=== PATIENT | female | born 1930 | race Caucasian/White ===

== ENCOUNTER 2017-08-17 15:29 | Emergency (ER) | payer MEDICARE, OTHER ==
[2017-08-17] MEDS ORDERED: ONDANSETRON HCL INJ/PF 4 MG/2 ML SDV IV ONE (15:46)
[2017-08-17] MEDS ORDERED: NORMAL SALINE 500 ML IV ONE ×2 (16:08→16:39)
[2017-08-17 16:13] LABS: ABSOLUTE LYMPHOCYTES (AUTO) 0.9 10^3/uL (0.5-4.7); ABSOLUTE NEUT (AUTO) 14.3 10^3/uL (1.7-8.2); BASOPHILS % (AUTO) 0.2 % (0-2); HEMATOCRIT 31.4 % (36.0-47.0); HEMOGLOBIN 10.5 g/dL (12.0-15.5); HGB HCT DIFFERENCE 0.1; LYMPHOCYTES % (AUTO) 5.6 % (13-45); MEAN CORPUSCULAR HEMOGLOBIN 30.6 pg (27.0-33.4); MEAN CORPUSCULAR HGB CONC 33.4 g/dL (32.0-36.0); MEAN CORPUSCULAR VOLUME 91 fl (80-97); MONOCYTES % (AUTO) 6.1 % (3-13); RED BLOOD COUNT 3.43 10^6/uL (3.72-5.28); RED CELL DISTRIBUTION WIDTH 13.6 % (11.5-14.0); SEGMENTED NEUTROPHILS % (AUTO) 88.1 % (42-78); WHITE BLOOD COUNT 16.2 10^3/uL (4.0-10.5)
[2017-08-17 16:26] LABS: ALANINE AMINOTRANSFERASE 22 U/L (9-52); ALKALINE PHOSPHATASE 49 U/L (38-126); ANION GAP 19 (5-19); ASPARTATE AMINO TRANSFERASE 21 U/L (14-36); BILIRUBIN,DIRECT 0.5 mg/dL (0.0-0.4); BILIRUBIN,TOTAL 0.6 mg/dL (0.2-1.3); BLOOD UREA NITROGEN 26 mg/dL (7-20); CALCIUM 9.9 mg/dL (8.4-10.2); CARBON DIOXIDE 18 mmol/L (22-30); CHLORIDE 107 mmol/L (98-107); CREATININE RESULT 1.06 mg/dL (0.52-1.25); GLUCOSE 153 mg/dL (75-110); LIPASE 75.9 U/L (23-300); POTASSIUM 4.2 mmol/L (3.6-5.0); TOTAL PROTEIN 6.3 g/dL (6.3-8.2)
--- NOTE | 2017-08-17 17:27 | RADIOLOGY REPORT (SQ) ---
EXAM DESCRIPTION: ACUTE ABDOMEN SERIES COMPLETED DATE/TIME: 08/17/2017 5:06 pm REASON FOR STUDY: n/v constipation COMPARISON: None. NUMBER OF VIEWS: Three views. TECHNIQUE: Frontal chest, supine abdomen and upright abdomen radiographic images acquired. LIMITATIONS: None. FINDINGS: CHEST: Lungs clear of infiltrates. FREE AIR: None. No abnormal gas collections. BOWEL GAS PATTERN: Nonobstructive pattern. No dilated loops or air fluid levels. There appears to be considerable stool in the rectum. CALCIFICATIONS: No suspicious calcifications. HARDWARE: None in the abdomen. SOFT TISSUES: Possible urinary bladder distension. BONES: No acute fracture. No worrisome bone lesions. OTHER: No other significant finding. IMPRESSION: Possible impaction. Possible dilated bladder. TECHNICAL DOCUMENTATION: JOB ID: [id number] [employer]- All Rights Reserved
[2017-08-17] MEDS ORDERED: LIDOCAINE 2% URO-JET 5 ML KIT MM ONE (17:47)
[2017-08-17 17:50] LABS: AMORPHOUS SEDIMENT,URINE TRACE /HPF; APPEARANCE,URINE CLOUDY; BILIRUBIN,URINE NEGATIVE (NEGATIVE); GLUCOSE, URINE NEGATIVE (NEGATIVE); KETONES,URINE TRACE mg/dL (NEGATIVE); LEUKOCYTE ESTERASE,URINE NEGATIVE (NEGATIVE); NITRITE,URINE NEGATIVE (NEGATIVE); PROTEIN,URINE NEGATIVE (NEGATIVE); UROBILINOGEN,URINE NEGATIVE mg/dL (<2.0)
[2017-08-17] MEDS ORDERED: ONDANSETRON ODT 4 MG TAB (6 TAB/DSPK) PO PRN (18:58)
--- NOTE | 2017-08-17 18:59 | ER Document Report ---
ED General - General Chief Complaint: Constipation Stated Complaint: CONSTIPATED, NAUSEA Time Seen by Provider: 08/17/17 15:43 - HPI Patient complains to provider of: Nausea vomiting constipation Notes: Patient brought in today for feeling unwell states feeling unwell for approximately 4 hours. Daughter at bedside states patient has not had a bowel movement approximate 40 hours. Was given a laxative approximate 24 hours ago and now is having some vomiting apparently 2 with his nausea. Daughter states patient has not taken anything p.o. except for a small amount of a Ensure drink. States that she is refused to eat or drink anything today. Upon my evaluation patient otherwise was to be frail however is alert. Patient denies any complaints at this time except for nausea. Daughter denies any fever chills patient denies any abdominal pain denies any chest pain Past Medical History - Social History Smoking Status: Never Smoker Chew tobacco use (# tins/day): No Frequency of alcohol use: None Drug Abuse: None Family History: Reviewed & Not Pertinent Patient has suicidal ideation: No Patient has homicidal ideation: No - Past Medical History Cardiac Medical History: Reports: Hx Congestive Heart Failure, Hx Hypertension Renal/ Medical History: Denies: Hx Peritoneal Dialysis Review of Systems - Review of Systems Constitutional: No symptoms reported EENT: No symptoms reported Cardiovascular: No symptoms reported Respiratory: No symptoms reported Gastrointestinal: No symptoms reported, Nausea Genitourinary: No symptoms reported Female Genitourinary: No symptoms reported Musculoskeletal: No symptoms reported Skin: No symptoms reported Hematologic/Lymphatic: No symptoms reported Neurological/Psychological: No symptoms reported -: Yes All other systems reviewed and negative Physical Exam - Vital signs Vitals: Resp BP Pulse Ox 15 158/138 H 99 08/17/17 15:43 08/17/17 15:43 08/17/17 15:43 Interpretation: Normal - General General appearance: Appears well, Alert - HEENT Head: Normocephalic, Atraumatic Eyes: Normal Pupils: PERRL - Respiratory Respiratory status: No respiratory distress Chest status: Nontender Breath sounds: Normal Chest palpation: Normal - Cardiovascular Rhythm: Regular Heart sounds: Normal auscultation Murmur: No - Abdominal Inspection: Normal Distension: No distension Bowel sounds: Normal Tenderness: Nontender Organomegaly: No organomegaly - Rectal Hemorrhoids: External Notes: Hard stool found in the rectal vault - Back Back: Normal, Nontender - Extremities General upper extremity: Normal inspection, Nontender, Normal color, Normal ROM , Normal temperature General lower extremity: Normal inspection, Nontender, Normal color, Normal ROM , Normal temperature, Normal weight bearing. No: Moni's sign - Neurological Neuro grossly intact: Yes Cognition: Normal Orientation: AAOx4 [place] Coma Scale Eye Opening: Spontaneous [place] Coma Scale Verbal: Oriented [place] Coma Scale Motor: Obeys Commands [place] Coma Scale Total: 15 Speech: Normal Motor strength normal: LUE, RUE, LLE, RLE Sensory: Normal - Psychological Associated symptoms: Normal affect, Normal mood - Skin Skin Temperature: Warm Skin Moisture: Dry Skin Color: Normal Course - Re-evaluation Re-evalutation: 08/17/17 19:21 Patient laboratory values showed slight elevation in white count and decreased bicarb this is more likely thought to be due to vomiting and dehydration. Patient was given IV fluids here patient was given antiemetics after which patient requesting water than applesauce which patient was able to tolerate. Patient's x-ray does show a stool impaction which was digitally removed. At this procedure performed patient stating feeling much better and request to be discharged home. Patient able tolerate p.o. at this time afebrile no new critical findings on examination patient will be discharged and encouraged follow-up with her PCP encouraged daughter to give stool softeners instead of laxatives - Vital Signs Vital signs: Temp Pulse Resp BP Pulse Ox 10 L 158/138 H 99 08/17/17 15:44 08/17/17 15:43 08/17/17 15:44 - Laboratory Result Diagrams: 08/17/17 15:52 08/17/17 15:52 Laboratory results interpreted by me: 08/17/17 08/17/17 08/17/17 15:52 15:52 17:24 WBC 16.2 H RBC 3.43 L Hgb 10.5 L Hct 31.4 L Seg Neutrophils % 88.1 H Lymphocytes % 5.6 L Absolute Neutrophils 14.3 H Carbon Dioxide 18 L BUN 26 H Est GFR ( Amer) 59 L Est GFR (Non-Af Amer) 49 L Glucose 153 H Direct Bilirubin 0.5 H Urine Ketones TRACE H Urine Ascorbic Acid 20 H Procedures - Additional Procedures Rectal disimpaction Notes: 08/17/17 19:23 Patient was placed in the left lateral, position installation of a Urojet was performed in the rectum using my finger sweeping motion was performed to remove hard stool until stool was softer consistency of Play-Daiana. Patient tolerated procedure well multiple hemorrhoids no bleeding occurred. Discharge - Discharge Clinical Impression: Impacted stool in rectum, Nausea, Dehydration Constipation Qualifiers: Constipation type: unspecified constipation type Qualified Code(s): K59.00 - Constipation, unspecified Condition: Good Disposition: HOME, SELF-CARE Instructions: Constipation ([facility]), Stool Softener ([facility]) Additional Instructions: X-ray showed fecal impaction was was removed digitally. Please encourage her mother to continue to drink plenty of fluids to stay well hydrated. More likely the nausea was caused by the use of laxatives. Recommend following up with your primary care physician next 3-4 days return to the ER symptoms worsen Prescriptions: Ondansetron [Zofran Odt 4 mg Tablet] 1 - 2 tab PO Q4H PRN #15 tab.rapdis PRN Reason: For Nausea/Vomiting Referrals: POPPY TAVARES MD [Primary Care Provider] - Follow up as needed
[2017-08-17 20:15] VITALS: BP 129/65
== END 2017-08-17 19:45 | disposition home or self-care (01) ==
LOC: ER 15:29
DX: K56.41 Fecal impaction (principal); R11.0 Nausea; E86.0 Dehydration; K59.00 Constipation, unspecified
CPT/HCPCS: 99284; 96361; 51701; 96374; 36415; 87045; 87205; 83690; 85025; 80053; 81001; 87493; 74022; J2405; J7040; A9270 ×2; J3490

== ENCOUNTER 2017-09-07 14:12 | Emergency (ER) | payer MEDICARE, OTHER ==
[2017-09-07 14:25] VITALS: BP 112/69
--- NOTE | 2017-09-07 14:52 | ER Document Report ---
ED Medical Screen (RME) - General Chief Complaint: Low Blood Pressure Stated Complaint: BLOOD PRESSURE ISSUES Time Seen by Provider: 09/07/17 14:42 Notes: This 87-year-old female patient comes emergency room for low blood pressure. She has been weak with no appetite for quite some time. She has had significant weight loss in the last month or so. Her daughter stopped her Prozac 2 weeks ago because of symptoms, it is probably made the symptoms worse. The patient had been on metoprolol 75 mg twice daily. The patient has dentures but they do not fit well now. She reports bone coming up through the gums. For this reason she initially stopped wanting to eat due to the pain and not having dentures that she could chew her food with. By history none of these issues have been addressed by her primary care provider. I have greeted and performed a rapid initial assessment of this patient. A comprehensive ED assessment and evaluation of the patient, analysis of test results and completion of the medical decision making process will be conducted by additional ED providers. TRAVEL OUTSIDE OF THE [place] IN LAST 30 DAYS: No - Related Data Allergies/Adverse Reactions: No Known Allergies Allergy (Verified 09/07/17 14:16) Past Medical History - Social History Chew tobacco use (# tins/day): No Frequency of alcohol use: None Drug Abuse: None - Past Medical History Cardiac Medical History: Reports: Hx Congestive Heart Failure, Hx Hypertension Renal/ Medical History: Denies: Hx Peritoneal Dialysis Physical Exam - Vital signs Vitals: Temp Pulse Resp BP Pulse Ox 97.8 F 108 H 16 112/69 99 09/07/17 14:24 09/07/17 14:24 09/07/17 14:24 09/07/17 14:24 09/07/17 14:24 Course - Vital Signs Vital signs: Temp Pulse Resp BP Pulse Ox 97.8 F 108 H 16 112/69 99 09/07/17 14:24 09/07/17 14:24 09/07/17 14:24 09/07/17 14:24 09/07/17 14:24
[2017-09-07 15:22] LABS: ABSOLUTE BASOPHILS # (AUTO) 0.1 10^3/uL (0.0-0.2); ABSOLUTE EOSINOPHILS # (AUTO) 0.1 10^3/uL (0.0-0.6); ABSOLUTE LYMPHOCYTES (AUTO) 1.7 10^3/uL (0.5-4.7); ABSOLUTE MONOCYTES (AUTO) 0.6 10^3/uL (0.1-1.4); ABSOLUTE NEUT (AUTO) 4.4 10^3/uL (1.7-8.2); BASOPHILS % (AUTO) 1.1 % (0-2); HEMATOCRIT 33.1 % (36.0-47.0); HGB HCT DIFFERENCE -0.1; LYMPHOCYTES % (AUTO) 24.5 % (13-45); MEAN CORPUSCULAR HEMOGLOBIN 30.7 pg (27.0-33.4); MEAN CORPUSCULAR HGB CONC 33.3 g/dL (32.0-36.0); MEAN CORPUSCULAR VOLUME 92 fl (80-97); MONOCYTES % (AUTO) 8.2 % (3-13); RED BLOOD COUNT 3.59 10^6/uL (3.72-5.28); RED CELL DISTRIBUTION WIDTH 13.6 % (11.5-14.0); SEGMENTED NEUTROPHILS % (AUTO) 65.2 % (42-78); WHITE BLOOD COUNT 6.8 10^3/uL (4.0-10.5)
[2017-09-07 15:39] LABS: ALANINE AMINOTRANSFERASE 22 U/L (9-52); ALKALINE PHOSPHATASE 51 U/L (38-126); ANION GAP 11 (5-19); ASPARTATE AMINO TRANSFERASE 23 U/L (14-36); BILIRUBIN,DIRECT 0.3 mg/dL (0.0-0.4); BILIRUBIN,TOTAL 0.3 mg/dL (0.2-1.3); BLOOD UREA NITROGEN 23 mg/dL (7-20); CALCIUM 9.8 mg/dL (8.4-10.2); CARBON DIOXIDE 27 mmol/L (22-30); CHLORIDE 103 mmol/L (98-107); CREATININE RESULT 1.24 mg/dL (0.52-1.25); GLUCOSE 143 mg/dL (75-110); POTASSIUM 4.4 mmol/L (3.6-5.0); SODIUM 140.7 mmol/L (137-145); TOTAL PROTEIN 6.8 g/dL (6.3-8.2)
== END 2017-09-07 16:57 | disposition left against medical advice (07) ==
LOC: ER 14:12
DX: I95.9 Hypotension, unspecified (principal); R63.4 Abnormal weight loss; R63.0 Anorexia; I10 Essential (primary) hypertension; Z79.899 Other long term (current) drug therapy; Z53.20 Procedure and treatment not carried out because of patient's decision for unspecified reasons
CPT/HCPCS: 36415; 80053; 85025; 99281

== ENCOUNTER 2018-01-09 05:40 | Emergency (ER) | payer MEDICARE, OTHER ==
--- NOTE | 2018-01-09 05:53 | ER Document Report ---
ED Medical Screen (RME) - General Stated Complaint: FEVER,NAUSEA Time Seen by Provider: 01/09/18 05:51 Mode of Arrival: Medic Information source: Relative Notes: Daughter states that patient presents with nausea and diarrhea since yesterday. Daughter states that patient has felt very weak and has not had any appetite. Daughter states that patient has had numerous episodes of diarrhea. Patient complains of soreness to abdomen. hx: Hypertension, hyperlipidemia, GERD, frequent UTIs I have greeted and performed a rapid initial assessment of this patient. A comprehensive ED assessment and evaluation of the patient, analysis of test results and completion of the medical decision making process will be conducted by additional ED providers. TRAVEL OUTSIDE OF THE [place] IN LAST 30 DAYS: No - Related Data Allergies/Adverse Reactions: No Known Allergies Allergy (Verified 09/07/17 14:16) Past Medical History - Past Medical History Cardiac Medical History: Reports: Hx Congestive Heart Failure, Hx Hypertension Renal/ Medical History: Denies: Hx Peritoneal Dialysis Physical Exam - General General appearance: Alert - Abdominal Bowel sounds: Hyperactive Tenderness: Tender - Generalized soreness
[2018-01-09 06:10] LABS: ABSOLUTE LYMPHOCYTES (AUTO) 1.2 10^3/uL (0.5-4.7); ABSOLUTE MONOCYTES (AUTO) 1.5 10^3/uL (0.1-1.4); ABSOLUTE NEUT (AUTO) 13.9 10^3/uL (1.7-8.2); HEMATOCRIT 30.9 % (36.0-47.0); HEMOGLOBIN 10.4 g/dL (12.0-15.5); LYMPHOCYTES % (AUTO) 7.5 % (13-45); MEAN CORPUSCULAR HEMOGLOBIN 30.4 pg (27.0-33.4); MEAN CORPUSCULAR HGB CONC 33.5 g/dL (32.0-36.0); MEAN CORPUSCULAR VOLUME 91 fl (80-97); PLATELET COUNT 300 10^3/uL (150-450); RED BLOOD COUNT 3.41 10^6/uL (3.72-5.28); SEGMENTED NEUTROPHILS % (AUTO) 83.5 % (42-78); TOTAL CELLS COUNTED % (AUTO) 100 %; WHITE BLOOD COUNT 16.7 10^3/uL (4.0-10.5)
--- NOTE | 2018-01-09 06:28 | RADIOLOGY REPORT (SQ) ---
EXAM DESCRIPTION: CHEST SINGLE VIEW CLINICAL HISTORY: 87 years Female, fever COMPARISON: None. NUMBER OF VIEWS/TECHNIQUE: 1/AP FINDINGS: Adequate lung volume, clear parenchyma, normal cardiac silhouette, atherosclerosis, left nuchal skinfold artifact, and intact bony thorax. IMPRESSION: No acute cardiopulmonary findings.
[2018-01-09 06:40] LABS: ALANINE AMINOTRANSFERASE 20 U/L (9-52); ALKALINE PHOSPHATASE 33 U/L (38-126); ANION GAP 11 (5-19); ASPARTATE AMINO TRANSFERASE 19 U/L (14-36); BILIRUBIN,DIRECT 0.2 mg/dL (0.0-0.4); BILIRUBIN,TOTAL 0.3 mg/dL (0.2-1.3); BLOOD UREA NITROGEN 40 mg/dL (7-20); CALCIUM 8.5 mg/dL (8.4-10.2); CARBON DIOXIDE 18 mmol/L (22-30); CHLORIDE 115 mmol/L (98-107); GLUCOSE 179 mg/dL (75-110); POTASSIUM 4.2 mmol/L (3.6-5.0); SODIUM 144.4 mmol/L (137-145); TOTAL PROTEIN 5.3 g/dL (6.3-8.2)
[2018-01-09] MEDS ORDERED: NORMAL SALINE 500 ML IV ONE (06:42)
[2018-01-09 07:11] LABS: APPEARANCE,URINE CLOUDY; BILIRUBIN,URINE NEGATIVE (NEGATIVE); GLUCOSE, URINE NEGATIVE (NEGATIVE); KETONES,URINE NEGATIVE (NEGATIVE); LEUKOCYTE ESTERASE,URINE NEGATIVE (NEGATIVE); NITRITE,URINE NEGATIVE (NEGATIVE); PROTEIN,URINE 30 mg/dL (NEGATIVE)
[2018-01-09 07:12] LABS: COLOR,URINE YELLOW
--- NOTE | 2018-01-09 08:03 | ER Document Report ---
ED General - General Chief Complaint: Nausea Stated Complaint: FEVER,NAUSEA Time Seen by Provider: 01/09/18 05:51 Mode of Arrival: Medic TRAVEL OUTSIDE OF THE [place] IN LAST 30 DAYS: No - HPI Patient complains to provider of: Nausea vomiting abdominal pain Notes: Patient coming in for home for approximately 24-48 hours of nausea and diarrhea. Family at bedside states no vomiting. Patient has been complaining of some diffuse abdominal pain. No chills patient is currently on Macrobid for urinary tract infection. Denies any other antibiotics. Patient otherwise resting comfortably upon my evaluation. No recent travel no changes to any medications except for Macrobid - Related Data Allergies/Adverse Reactions: No Known Allergies Allergy (Verified 09/07/17 14:16) Past Medical History - General Information source: Relative - Social History Smoking Status: Unknown if Ever Smoked Family History: Reviewed & Not Pertinent Patient has suicidal ideation: No Patient has homicidal ideation: No - Past Medical History Cardiac Medical History: Reports: Hx Congestive Heart Failure, Hx Hypertension Renal/ Medical History: Denies: Hx Peritoneal Dialysis Review of Systems - Review of Systems Constitutional: No symptoms reported EENT: No symptoms reported Cardiovascular: No symptoms reported Respiratory: No symptoms reported Gastrointestinal: Diarrhea, Nausea Genitourinary: No symptoms reported Female Genitourinary: No symptoms reported Musculoskeletal: No symptoms reported Skin: No symptoms reported Hematologic/Lymphatic: No symptoms reported Neurological/Psychological: No symptoms reported -: Yes All other systems reviewed and negative Physical Exam - Vital signs Vitals: Temp Resp Pulse Ox 99.8 F 15 96 01/09/18 05:49 01/09/18 05:49 01/09/18 05:49 Interpretation: Normal - General General appearance: Appears well, Alert - HEENT Head: Normocephalic, Atraumatic Eyes: Normal Pupils: PERRL - Respiratory Respiratory status: No respiratory distress Chest status: Nontender Breath sounds: Normal Chest palpation: Normal - Cardiovascular Rhythm: Regular Heart sounds: Normal auscultation Murmur: No - Abdominal Inspection: Normal Distension: No distension Bowel sounds: Normal Tenderness: Tender - Mild to moderate left lower quadrant tenderness Organomegaly: No organomegaly - Back Back: Normal, Nontender - Extremities General upper extremity: Normal inspection, Nontender, Normal color, Normal ROM , Normal temperature General lower extremity: Normal inspection, Nontender, Normal color, Normal ROM , Normal temperature, Normal weight bearing. No: Moni's sign - Neurological Neuro grossly intact: Yes Cognition: Normal Orientation: AAOx4 [place] Coma Scale Eye Opening: Spontaneous [place] Coma Scale Verbal: Oriented [place] Coma Scale Motor: Obeys Commands [place] Coma Scale Total: 15 Speech: Normal Motor strength normal: LUE, RUE, LLE, RLE Sensory: Normal - Psychological Associated symptoms: Normal affect, Normal mood - Skin Skin Temperature: Warm Skin Moisture: Dry Skin Color: Normal Course - Re-evaluation Re-evalutation: 01/09/18 08:31 Slight leukocytosis and decreased bicarb patient has a history of the site to be diarrhea with constipation last few visits with bicarb looking similar. Because of left lower quadrant abdominal pain will get a CAT scan to evaluate for diverticulitis diverticulosis or other abdominal pathology 01/09/18 14:40 CT scan shows colitis. Also questionable rectocutaneous fistula. Reevaluation of the patient's rectum does not reveal any signs of fistula formation. Fluid around the bladder is consistent with infection however I do feel that patient primary however patient recently finished a prescription for urinary tract infection. Patient otherwise feeling better after IV fluids. Patient daughter at bedside to take care of the patient requesting to take the patient home does not want admission at this time. Patient was able to tolerate her p.o. Cipro and p.o. Flagyl monitor quite some time and remembers reeducated keep the patient hydrated to continue antibiotics return for any concerning issues. States understanding will be discharged home - Vital Signs Vital signs: Temp Pulse Resp BP Pulse Ox 98.7 F 13 159/69 H 97 01/09/18 11:54 01/09/18 11:58 01/09/18 11:54 01/09/18 11:58 - Laboratory Result Diagrams: 01/09/18 05:57 01/09/18 05:57 Laboratory results interpreted by me: 01/09/18 01/09/18 01/09/18 05:57 05:57 06:39 WBC 16.7 H RBC 3.41 L Hgb 10.4 L Hct 30.9 L Seg Neutrophils % 83.5 H Lymphocytes % 7.5 L Absolute Neutrophils 13.9 H Absolute Monocytes 1.5 H Chloride 115 H Carbon Dioxide 18 L BUN 40 H Est GFR ( Amer) 56 L Est GFR (Non-Af Amer) 46 L Glucose 179 H Alkaline Phosphatase 33 L Total Protein 5.3 L Albumin 3.0 L Urine Protein 30 H Urine Urobilinogen 4.0 H Discharge - Discharge Clinical Impression: Colitis Diarrhea Qualifiers: Diarrhea type: unspecified type Qualified Code(s): R19.7 - Diarrhea, unspecified Condition: Good Disposition: HOME, SELF-CARE Instructions: Ciprofloxacin ([facility]), Colitis, Nonspecific ([facility]), Metronidazole ( [facility]) Additional Instructions: Follow-up with your primary care physician. Return to ER symptoms worsen. Take medications as prescribed. Laboratory results today show a small leukocytosis along with a CAT scan finding of colitis or inflammation and infection of the colon. More likely this is the reason for the patient's having diarrhea. We will start patient on Cipro and Flagyl. Please make sure the patient stays well hydrated and drinks plenty fluids. Recommend increasing fiber or adding her to diet to aid in diarrhea. Return to the ER for any concerning issues. Follow-up with your primary care provider. I will also have your information given to our social work they will also contact you to see if any further assistance or aid in discussing with your PCP about finding aid for home. Prescriptions: Ciprofloxacin HCl [Cipro 500 mg Tablet] 500 mg PO BID #20 tablet Metoclopramide HCl [Reglan] 5 mg PO Q6 #30 tablet Metronidazole [Flagyl 500 mg Tablet] 500 mg PO TID #30 tablet Referrals: ALIYAH WHITEHEAD MD [Primary Care Provider] - Follow up in 3-5 days
--- NOTE | 2018-01-09 09:02 | RADIOLOGY REPORT (SQ) ---
EXAM DESCRIPTION: CT ABD/PELVIS WITH IV ONLY COMPLETED DATE/TIME: 01/09/2018 8:22 am REASON FOR STUDY: LLQ pain n/d COMPARISON: None. TECHNIQUE: CT scan of the abdomen and pelvis performed using helical scanning technique with dynamic intravenous contrast injection. No oral contrast. Images reviewed with lung, soft tissue, and bone windows. Reconstructed coronal and sagittal MPR images reviewed. Delayed images for evaluation of the urinary system also acquired. All images stored on PACS. All CT scanners at this facility use dose modulation, iterative reconstruction, and/or weight based d osing when appropriate to reduce radiation dose to as low as reasonably achievable (ALARA). [facility]: Dose Right [facility]: CareDose [facility]: Dose Right [facility]: Teradose 4D [facility]: [employer] CONTRAST TYPE AND DOSE: contrast/concentration: Isovue 370.00 mg/ml; Total Contrast Delivered: 49.0 ml; Total Saline Delivered: 65.0 ml RENAL FUNCTION: Creatinine measures 1.12 RADIATION DOSE: CT Rad equipment meets quality standard of care and radiation dose reduction techniq ues were employed. CTDIvol: 4.8 mGy. DLP: 484 mGy-cm.. LIMITATIONS: None. FINDINGS: LOWER CHEST: No significant findings. No nodules or infiltrates. LIVER: Normal size. No masses. No dilated ducts. SPLEEN: Normal size. No focal lesions. PANCREAS: No masses. No significant calcifications. No adjacent inflammation or peripancreatic fluid collections. Pancreatic duct not dilated. GALLBLADDER: No identified stones by CT criteria. No inflammatory changes to suggest cholecystitis. ADRENAL GLANDS: No significant masses or asymmetry. RIGHT KIDNEY AND URETER: No solid masses. No significant calcifications. No hydronephrosis or hyd roureter. LEFT KIDNEY AND URETER: No solid masses. No significant calcifications. No hydronephrosis or hydr oureter. AORTA AND VESSELS: No aneurysm. No dissection. Renal arteries, SMA, celiac without stenosis. RETROPERITONEUM: No retroperitoneal adenopathy, hemorrhage or masses. BOWEL AND PERITONEAL CAVITY: There is a large amount of desiccated stool distending the rectal vault. There is diffuse mucosal thickening and surrounding inflammation involving the descending and sigmo id colon compatible with colitis. APPENDIX: Normal. PELVIS: No discrete mass identified. There is diffuse mucosal thickening involving the bladder with surrounding inflammation with fluid extending into the perirectal and presacral space. ABDOMINAL WALL: No masses. No hernias. BONES: Degenerative change without fracture or suspicious osseous lesion. OTHER: There appears to be a communication between the anal canal in the skin surface seen on series 3 images [id number] suggestive of an anal cutaneous fistula. IMPRESSION: CT FINDINGS SUGGESTIVE OF COLITIS INVOLVING THE DESCENDING AND SIGMOID COLON WHICH COULD BE INFECTIOUS OR INFLAMMATORY. RECOMMEND FOLLOWUP COLONOSCOPY TO ENSURE NO UNDERLYING LESION. INFLAMMATORY CHANGE INVOLVING THE BLADDER WITH FLUID EXTENDING DOWN INTO THE PERIRECTAL AND PRESACRAL SPACE SUGGESTIVE OF CYSTITIS. CORRELATE WITH URINALYSIS. 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 CORRELATE WITH PHYSICAL EXAM FINDINGS. TECHNICAL DOCUMENTATION: JOB ID: [id number] Quality ID # [id number]: Final reports with documentation of one or more dose reduction techniques (e.g., Au tomated exposure control, adjustment of the mA and/or kV according to patient size, use of iterative reconstruction technique) 2010 [employer]- All Rights Reserved Reading location - IP/workstation name: [email or web address]
[2018-01-09] MEDS ORDERED: CIPROFLOXACIN HCL 500 MG TABLET PO ONE (09:30)
[2018-01-09] MEDS ORDERED: ONDANSETRON HCL INJ/PF 4 MG/2 ML SDV IV ONE (09:30)
[2018-01-09] MEDS ORDERED: METRONIDAZOLE 500 MG TABLET PO ONE (09:30)
[2018-01-09 12:22] VITALS: BP 159/69
== END 2018-01-09 12:00 | disposition home or self-care (01) ==
LOC: ER 05:40
DX: K52.9 Noninfective gastroenteritis and colitis, unspecified (principal); R50.9 Fever, unspecified; R11.0 Nausea; R10.32 Left lower quadrant pain; D72.829 Elevated white blood cell count, unspecified; I10 Essential (primary) hypertension
CPT/HCPCS: 99285; 96374; 36415; 87040; 87045; 87205; 83690; 85025; 80053; 81001; 87493; 71045; 74177; A9270 ×2; J2405; J7040

== ENCOUNTER 2018-01-10 10:13 | Inpatient (IN) | payer MEDICARE, OTHER ==
[2018-01-10] MEDS ORDERED: NORMAL SALINE 500 ML IV ONE (10:21)
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
[2018-01-10 10:44] LABS: ABSOLUTE LYMPHOCYTES (AUTO) 1.2 10^3/uL (0.5-4.7); ABSOLUTE MONOCYTES (AUTO) 1.7 10^3/uL (0.1-1.4); ABSOLUTE NEUT (AUTO) 13.1 10^3/uL (1.7-8.2); BASOPHILS % (AUTO) 0.1 % (0-2); HEMATOCRIT 29.7 % (36.0-47.0); HEMOGLOBIN 9.9 g/dL (12.0-15.5); LYMPHOCYTES % (AUTO) 7.3 % (13-45); MEAN CORPUSCULAR HEMOGLOBIN 29.8 pg (27.0-33.4); MEAN CORPUSCULAR HGB CONC 33.3 g/dL (32.0-36.0); MEAN CORPUSCULAR VOLUME 90 fl (80-97); MONOCYTES % (AUTO) 10.8 % (3-13); PLATELET COUNT 291 10^3/uL (150-450); RED BLOOD COUNT 3.31 10^6/uL (3.72-5.28); RED CELL DISTRIBUTION WIDTH 14.1 % (11.5-14.0); SEGMENTED NEUTROPHILS % (AUTO) 81.8 % (42-78); TOTAL CELLS COUNTED % (AUTO) 100 %
[2018-01-10 11:07] LABS: ALANINE AMINOTRANSFERASE 24 U/L (9-52); ALBUMIN 3.4 g/dL (3.5-5.0); ALKALINE PHOSPHATASE 34 U/L (38-126); ANION GAP 12 (5-19); ASPARTATE AMINO TRANSFERASE 23 U/L (14-36); BILIRUBIN,DIRECT 0.3 mg/dL (0.0-0.4); BILIRUBIN,TOTAL 0.4 mg/dL (0.2-1.3); BLOOD UREA NITROGEN 35 mg/dL (7-20); CALCIUM 9.3 mg/dL (8.4-10.2); CARBON DIOXIDE 20 mmol/L (22-30); CHLORIDE 109 mmol/L (98-107); GLUCOSE 151 mg/dL (75-110); POTASSIUM 4.4 mmol/L (3.6-5.0); SODIUM 141.4 mmol/L (137-145)
[2018-01-10 11:43] LABS: AMORPHOUS SEDIMENT,URINE TRACE /HPF; APPEARANCE,URINE SLIGHTLY-CLOUDY; BILIRUBIN,URINE NEGATIVE (NEGATIVE); COLOR,URINE YELLOW; GLUCOSE, URINE NEGATIVE (NEGATIVE); KETONES,URINE NEGATIVE (NEGATIVE); LEUKOCYTE ESTERASE,URINE TRACE (NEGATIVE); NITRITE,URINE NEGATIVE (NEGATIVE); PROTEIN,URINE 30 mg/dL (NEGATIVE); URINE SPECIFIC GRAVITY 1.016; UROBILINOGEN,URINE NEGATIVE mg/dL (<2.0)
--- NOTE | 2018-01-10 11:53 | RADIOLOGY REPORT (SQ) ---
EXAM DESCRIPTION: CT HEAD WITHOUT COMPLETED DATE/TIME: 01/10/2018 11:42 am REASON FOR STUDY: AMS, unable to walk COMPARISON: None. TECHNIQUE: Axial images acquired through the brain without intravenous contrast. Images reviewed wi th bone, brain and subdural windows. Additional sagittal and coronal reconstructions were generated. Images stored on PACS. All CT scanners at this facility use dose modulation, iterative reconstruction, and/or weight based d osing when appropriate to reduce radiation dose to as low as reasonably achievable (ALARA). [facility]: Dose Right [facility]: CareDose [facility]: Dose Right [facility]: Teradose 4D [facility]: [employer] RADIATION DOSE: CT Rad equipment meets quality standard of care and radiation dose reduction techniq ues were employed. CTDIvol: 53.2 mGy. DLP: 1097 mGy-cm. mGy. LIMITATIONS: None. FINDINGS: VENTRICLES: Normal size and contour. CEREBRUM: No masses. No hemorrhage. No midline shift. No evidence for acute infarction. There is b ifrontal low attenuation in the deep periventricular white matter from chronic small vessel ischemic change. 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 CEREBELLUM: No masses. No hemorrhage. No alteration of density. No evidence for acute infarction. EXTRAAXIAL SPACES: No fluid collections. No masses. ORBITS AND GLOBE: No intra- or extraconal masses. Normal contour of globe without masses. CALVARIUM: No fracture. PARANASAL SINUSES: No fluid or mucosal thickening. SOFT TISSUES: No mass or hematoma. OTHER: No other significant finding. IMPRESSION: No acute findings. 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 COMMENT: Quality ID # [id number]: Final reports with documentation of one or more dose reduction techniques (e.g., Automated exposure control, adjustment of the mA and/or kV according to patient size, use of iterative reconstruction technique) TECHNICAL DOCUMENTATION: JOB ID: [id number] [employer]- All Rights Reserved Reading location - IP/workstation name: ON LICENSE OF [email or web address]
[2018-01-10] MEDS ORDERED: ONDANSETRON HCL INJ/PF 4 MG/2 ML SDV IV PRN (14:24)
--- NOTE | 2018-01-10 14:48 | PDOC H&P ---
History of Present Illness Admission Date/PCP: 01/10/2018 2.30pm ALIYAH WHITEHEAD MD Patient complains of: Abdominal pain anorexia. Unable to ambulate History of Present Illness: MADAI HONG is a 87 year old female With a known past history of CHF ; usually cared for at home by her daughter She was brought to the ED with a history of anorexia ;abdominal pain extreme weakness with inability to stand and ambulate for the past 4 days. Patient has been bedbound, somewhat lethargic. She was evaluated yesterday in the ED and diagnosed of acute colitis and UTI She was discharged home on Cipro and Flagyl. Somehow her condition worsened and she was brought back for reevaluation and admission Upon evaluation in the ED she was found somewhat dehydrated; examination of the abdomen revealed a diffusely tender abdomen With mild guarding and mild rebound in all quadrants Review of the CT showed pancolitis, cystitis and suspicion of an enterocutaneous fistula. Patient was admitted to IMCU with telemetry; IV Cipro and Flagyl were initiated ; IV fluids; she was kept n.p.o. And surgical consult with Dr. Vogt was requested. Noted that patient wishes to be full code Past Medical History Cardiac Medical History: Reports: Congestive Heart Failure, Hypertension Past Surgical History Past Surgical History: No significant past surgical issues Social History Information Source: Patient Lives with: Family Smoking Status: Never Smoker Frequency of Alcohol Use: None Hx Recreational Drug Use: No - Advance Directive Resuscitation Status: Full Code Surrogate healthcare decision maker:: Daughter Hayley Family History Parental Family History Reviewed: Yes Children Family History Reviewed: Yes Sibling(s) Family History Reviewed.: Yes - 1 brother in good health Sister is well but has decreased visual acuity Medication/Allergy Home Medications: Aspirin [Adult Aspirin] 81 mg PO DAILY 01/09/18 Ciprofloxacin HCl [Cipro 500 mg Tablet] 500 mg PO BID #20 tablet 01/09/18 Fluoxetine HCl [Prozac] 1 cap PO DAILY 01/09/18 Lisinopril [Lisinopril] 1 tab PO DAILY 01/09/18 Metoclopramide HCl [Reglan] 5 mg PO Q6 #30 tablet 01/09/18 Metoprolol Tartrate [Lopressor 50 mg Tablet] 0.5 tab PO BID 01/09/18 Metronidazole [Flagyl 500 mg Tablet] 500 mg PO TID #30 tablet 01/09/18 Nitrofurantoin Macrocrystal [Macrodantin] 100 mg PO DAILY 01/09/18 Oxybutynin Chloride 5 mg PO BID 01/09/18 Pravastatin Sodium 40 mg PO DAILY 01/09/18 Allergies/Adverse Reactions: No Known Allergies Allergy (Verified 09/07/17 14:16) Review of Systems Constitutional: PRESENT: anorexia, fatigue, weakness Eyes: PRESENT: visual disturbances Cardiovascular: ABSENT: chest pain, dyspnea on exertion, edema, palpitations Respiratory: ABSENT: cough, dyspnea, hemoptysis Gastrointestinal: PRESENT: as per HPI, abdominal pain, diarrhea Genitourinary: ABSENT: difficulty urinating, hematuria Musculoskeletal: ABSENT: joint swelling Neurological: PRESENT: frequent falls - Yes, weakness, other - Left hand has been contracted for the last 4 days. ABSENT: abnormal speech, confusion Psychiatric: ABSENT: anxiety, depression Physical Exam Vital Signs: Temp Pulse Resp BP Pulse Ox 98.8 F 63 14 159/66 H 97 01/10/18 10:18 01/10/18 10:18 01/10/18 13:01 01/10/18 13:01 01/10/18 13:01 Intake & Output 01/09/18 01/10/18 01/11/18 00:59 00:59 00:59 Weight 41.6 kg General appearance: PRESENT: mild distress, thin, other - Looks frail Head exam: PRESENT: atraumatic, normocephalic Eye exam: PRESENT: conjunctiva pink, EOMI, PERRLA. ABSENT: scleral icterus Respiratory exam: PRESENT: clear to auscultation catarino. ABSENT: rales, rhonchi, wheezes Cardiovascular exam: PRESENT: RRR. ABSENT: diastolic murmur, rubs, systolic murmur GI/Abdominal exam: PRESENT: guarding, normal bowel sounds, rebound - No quadrants, tenderness Rectal exam: PRESENT: deferred Extremities exam: PRESENT: full ROM. ABSENT: calf tenderness, clubbing, pedal edema Neurological exam: PRESENT: awake, CN II-XII grossly intact, other - Left hand is contracted Psychiatric exam: PRESENT: appropriate affect Skin exam: PRESENT: dry, intact, warm. ABSENT: cyanosis, rash Results Laboratory Results: 01/10/18 10:30 01/10/18 10:30 01/10/18 01/10/18 01/10/18 10:30 10:30 11:08 WBC 16.0 H RBC 3.31 L Hgb 9.9 L Hct 29.7 L MCV 90 MCH 29.8 MCHC 33.3 RDW 14.1 H Plt Count 291 Seg Neutrophils % 81.8 H Lymphocytes % 7.3 L Monocytes % 10.8 Eosinophils % 0.0 Basophils % 0.1 Absolute Neutrophils 13.1 H Absolute Lymphocytes 1.2 Absolute Monocytes 1.7 H Absolute Eosinophils 0.0 Absolute Basophils 0.0 Sodium 141.4 Potassium 4.4 Chloride 109 H Carbon Dioxide 20 L Anion Gap 12 BUN 35 H Creatinine 1.21 Est GFR ( Amer) 51 L Est GFR (Non-Af Amer) 42 L Glucose 151 H Calcium 9.3 Total Bilirubin 0.4 AST 23 ALT 24 Alkaline Phosphatase 34 L Total Protein 6.0 L Albumin 3.4 L Urine Color YELLOW Urine Appearance SLIGHTLY-CLOUDY Urine pH 5.0 Ur Specific Lena 1.016 Urine Protein 30 H Urine Glucose (UA) NEGATIVE Urine Ketones NEGATIVE Urine Blood NEGATIVE Urine Nitrite NEGATIVE Ur Leukocyte Esterase TRACE H Urine WBC (Auto) 2 Urine RBC (Auto) 4 Impressions: Head CT 01/10/18 10:49 IMPRESSION: No acute findings. 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 Assessment & Plan - Diagnosis (1) Abdominal pain Qualifiers: Abdominal location: generalized Qualified Code(s): R10.84 - Generalized abdominal pain Is this a current diagnosis for this admission?: Yes (2) Ambulatory dysfunction Is this a current diagnosis for this admission?: Yes (4) Dehydration Is this a current diagnosis for this admission?: Yes (5) UTI (urinary tract infection) Qualifiers: Urinary tract infection type: acute cystitis - Time Time Spent with patient: Patient has an extremely tender abdomen and evidence of acute colitis on the CAT scan We will keep her n.p.o. IV fluids Cipro Flagyl Morphine as needed Surgical consult She is somewhat dehydrated with a BUN of 40 but remains hemodynamically stable We will hydrate her with saline Hansen catheter will be inserted We will admit the patient as an inpatient to IMCU Her prognosis is guarded Time Spent: 50 to 70 Minutes - Inpatient Certification Based on my medical assessment, after consideration of the patient's comorbidities, presenting symptoms, or acuity I expect that the services needed warrant INPATIENT care.: Yes I certify that my determination is in accordance with my understanding of Medicare's requirements for reasonable and necessary INPATIENT services [42 CFR 412.3e].: Yes Medical Necessity: Need For IV Fluids, Need for IV Antibiotics
[2018-01-10] MEDS: CIPROFLOXACIN 400 MG/D5W RTU 400 MG/200 ML RTUPB IV SCH (16:46)
--- NOTE | 2018-01-10 17:07 | PDOC CONSULTATION ---
Consultation Consult Date: 01/10/18 Attending physician:: RITA PADILLA Consult reason:: Acute abdomen History of Present Illness Admission Date/PCP: 01/10/18 14:36 ALIYAH WHITEHEAD MD History of Present Illness: MADAI HONG is a 87 year old female Is brought to the emergency department for the second and arrived complaining of abdominal pain, weakness, and fatigue. Please see admission history and physical document for complete records. According the patient she feels tired, and and can control her bowels. There is no family member to corroborate her history. She is very soft-spoken. Ranges are made for admission to the floor. In the emergency department she received IV fluids and had blood drawn. Patient was seen in emergency department 24 hours ago diagnosed with colitis and sent home with Flagyl and ciprofloxacin. Because of failure to improve she returned today. CT scan of the abdomen and pelvis showed findings consistent with constipation. A description of colonic wall thickening consistent with colitis, and possible enterocutaneous fistula were also mentioned. Past Medical History Cardiac Medical History: Reports: Congestive Heart Failure, Hypertension Past Surgical History Past Surgical History: Midline scar consistent with previous surgery, details unknown Social History Lives with: Family Smoking Status: Never Smoker Frequency of Alcohol Use: None Hx Recreational Drug Use: No Hx Prescription Drug Abuse: No - Advance Directive Resuscitation Status: Full Code Family History Family History: Reviewed & Not Pertinent Parental Family History Reviewed: Yes Children Family History Reviewed: Yes Sibling(s) Family History Reviewed.: Yes Medication/Allergy Home Medications: Aspirin [Adult Aspirin] 81 mg PO DAILY 01/09/18 Ciprofloxacin HCl [Cipro 500 mg Tablet] 500 mg PO BID #20 tablet 01/09/18 Fluoxetine HCl [Prozac] 1 cap PO DAILY 01/09/18 Lisinopril [Lisinopril] 1 tab PO DAILY 01/09/18 Metoclopramide HCl [Reglan] 5 mg PO Q6 #30 tablet 01/09/18 Metoprolol Tartrate [Lopressor 50 mg Tablet] 0.5 tab PO BID 01/09/18 Metronidazole [Flagyl 500 mg Tablet] 500 mg PO TID #30 tablet 01/09/18 Nitrofurantoin Macrocrystal [Macrodantin] 100 mg PO DAILY 01/09/18 Oxybutynin Chloride 5 mg PO BID 01/09/18 Pravastatin Sodium 40 mg PO DAILY 01/09/18 Allergies/Adverse Reactions: No Known Allergies Allergy (Verified 09/07/17 14:16) Review of Systems ROS unobtainable: Due to mental status, Other - Patient really cannot answer all the questions for thorough review of systems Physical Exam Vital Signs: Temp Pulse Resp BP Pulse Ox 98.1 F 63 14 167/92 H 96 01/10/18 16:32 01/10/18 10:18 01/10/18 16:01 01/10/18 16:01 01/10/18 16:01 General appearance: PRESENT: no acute distress Head exam: PRESENT: normocephalic Eye exam: PRESENT: EOMI Mouth exam: PRESENT: dry mucosa Neck exam: PRESENT: full ROM Respiratory exam: PRESENT: decreased breath sounds Cardiovascular exam: PRESENT: RRR GI/Abdominal exam: PRESENT: other - Soft, flat, no organomegaly no peritoneal signs really no significant tenderness; Scars consistent with previous midline surgery Rectal exam: PRESENT: other - Copious amounts of brown stool coming out with rectal exam. Sphincter tone is loose; no palpable masses Psychiatric exam: PRESENT: flat affect Results Impressions: Head CT 01/10/18 10:49 IMPRESSION: No acute findings. 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 Assessment & Plan - Diagnosis (1) Abdominal pain Qualifiers: Abdominal location: generalized Qualified Code(s): R10.84 - Generalized abdominal pain Is this a current diagnosis for this admission?: Yes Plan: Unclear etiology; tentative diagnosis of colitis entertained based on CT scan of the abdomen and pelvis. Surgeon's comment: CT scan was performed without oral contrast. I personally reviewed the CT scan with Dr. Pisano, radiologist. No definitive evidence of enterocutaneous fistula. There is no significant fluid collection, free air, phlegmon, and only a rectal anal canal full of stool. Chronic atherosclerotic changes and osteoarthritic changes consistent with patient's age. Recommendations: 1. No indication for acute surgical intervention her graft 2. Agree with medical support including IV fluids and empiric antibiotic therapy. 3. Suggest addressing CODE STATUS 4. Surgery will be available on an as-needed basis. - Time Time Spent: 30 to 50 Minutes Smoking Cessation Education: 3 to 10 minutes Anticipated discharge: Home
[2018-01-10] MEDS ORDERED: POLYETHYLENE GLYCOL 3350 POWDER 17 GM/1 PACKET PO ONE (18:00)
[2018-01-10] MEDS: BISACODYL 5 MG TABEC PO SCH (19:01)
[2018-01-10] MEDS: METRONIDAZOLE 500 MG/NS RTU 100 ML IV SCH (19:58)
--- NOTE | 2018-01-10 21:16 | EKG REPORT ---
SEVERITY:- ABNORMAL ECG - SINUS RHYTHM RIGHT BUNDLE BRANCH BLOCK LVH WITH IVCD AND SECONDARY REPOL ABNRM : Confirmed by: Kait Stoll 10-Jan-2018 21:16:25
[2018-01-10] MEDS: PANTOPRAZOLE SODIUM 40 MG VIAL IV SCH (21:23)
[2018-01-10] MEDS: NA PHOS,M-B/NA PHOS,DI-BA (ADULT) 133 ML ENEMA PR SCH (21:23)
[2018-01-11] MEDS: METRONIDAZOLE 500 MG/NS RTU 100 ML IV SCH ×5 (00:19→23:30)
[2018-01-11] MEDS: CIPROFLOXACIN 400 MG/D5W RTU 400 MG/200 ML RTUPB IV SCH ×2 (04:52→15:32)
[2018-01-11 06:51] LABS: HEMATOCRIT 29.1 % (36.0-47.0); HEMOGLOBIN 9.7 g/dL (12.0-15.5); MEAN CORPUSCULAR HGB CONC 33.5 g/dL (32.0-36.0); MEAN CORPUSCULAR VOLUME 90 fl (80-97); PLATELET COUNT 282 10^3/uL (150-450); RED BLOOD COUNT 3.25 10^6/uL (3.72-5.28); WHITE BLOOD COUNT 15.7 10^3/uL (4.0-10.5)
[2018-01-11 07:10] LABS: ALANINE AMINOTRANSFERASE 24 U/L (9-52); ALBUMIN 2.9 g/dL (3.5-5.0); ALKALINE PHOSPHATASE 40 U/L (38-126); ANION GAP 11 (5-19); ASPARTATE AMINO TRANSFERASE 16 U/L (14-36); BILIRUBIN,DIRECT 0.1 mg/dL (0.0-0.4); BILIRUBIN,TOTAL 0.2 mg/dL (0.2-1.3); BLOOD UREA NITROGEN 24 mg/dL (7-20); CALCIUM 8.8 mg/dL (8.4-10.2); CARBON DIOXIDE 21 mmol/L (22-30); CHLORIDE 111 mmol/L (98-107); GLUCOSE 158 mg/dL (75-110); POTASSIUM 3.5 mmol/L (3.6-5.0); SODIUM 142.8 mmol/L (137-145); TOTAL PROTEIN 5.3 g/dL (6.3-8.2)
[2018-01-11 08:18] LABS: FREE T4 (FREE THYROXINE) 1.13 ng/dL (0.78-2.19)
[2018-01-11 08:32] LABS: THYROID STIMULATING HORMONE 1.88 uIU/mL (0.47-4.68)
[2018-01-11] MEDS: NORMAL SALINE 1000 ML 1,000 ML IV PRN (09:18)
[2018-01-11] MEDS: PANTOPRAZOLE SODIUM 40 MG VIAL IV SCH ×2 (09:18→21:11)
[2018-01-11] MEDS: BISACODYL 5 MG TABEC PO SCH ×2 (09:19→17:33)
[2018-01-11] MEDS: POLYETHYLENE GLYCOL 3350 POWDER 17 GM/1 PACKET PO SCH (09:19)
[2018-01-11] MEDS ORDERED: LISINOPRIL 10 MG TABLET PO ONE (11:00)
[2018-01-11] MEDS ORDERED: METOPROLOL TARTRATE 25 MG TABLET PO ONE (11:00)
--- NOTE | 2018-01-11 14:18 | PDOC PROGRESS REPORT ---
Subjective Progress Note for:: 01/11/18 Subjective:: Patient is feeling a lot better Decreased abdominal pain No nausea vomiting She is tolerating a diet And mentation is improved Reason For Visit: ACUTE COLITIS, ABDOMINAL PAIN Physical Exam Vital Signs: Temp Pulse Resp BP Pulse Ox 98.7 F 78 18 170/63 H 97 01/11/18 07:31 01/11/18 07:31 01/11/18 07:31 01/11/18 07:31 01/11/18 07:31 Intake & Output 01/10/18 01/11/18 01/12/18 00:59 00:59 00:59 Intake Total 100 2172 Output Total 550 600 Balance -450 1572 Weight 43 kg 46.5 kg She does not look as ill as yesterday She is alert and awake Pupils are PERRLA extraocular motor intact Conjunctiva pale Neck supple Heart regular rhythm no murmur no gallop Lungs are clear no rales no rhonchi Abdomen is soft nontender Extremities are intact Neuro nonfocal Results Laboratory Results: 01/11/18 06:28 01/11/18 06:28 01/11/18 01/11/18 01/11/18 06:28 06:28 06:28 WBC 15.7 H RBC 3.25 L Hgb 9.7 L Hct 29.1 L MCV 90 MCH 30.0 MCHC 33.5 RDW 14.0 Plt Count 282 Sodium 142.8 Potassium 3.5 L Chloride 111 H Carbon Dioxide 21 L Anion Gap 11 BUN 24 H Creatinine 1.00 Est GFR ( Amer) > 60 Est GFR (Non-Af Amer) 53 L Glucose 158 H Calcium 8.8 Total Bilirubin 0.2 AST 16 ALT 24 Alkaline Phosphatase 40 Total Protein 5.3 L Albumin 2.9 L TSH 1.88 Free T4 1.13 Impressions: Head CT 01/10/18 10:49 IMPRESSION: No acute findings. 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 Assessment & Plan - Diagnosis (1) Abdominal pain Qualifiers: Abdominal location: generalized Qualified Code(s): R10.84 - Generalized abdominal pain Is this a current diagnosis for this admission?: Yes (2) Ambulatory dysfunction Is this a current diagnosis for this admission?: Yes (4) Dehydration Is this a current diagnosis for this admission?: Yes (5) UTI (urinary tract infection) Qualifiers: Is this a current diagnosis for this admission?: Yes - Time Time Spent with patient: The patient is improving after 24 hours We will continue hydration Increase diet as tolerated Continue Cipro and Flagyl PT evaluation Time Spent with patient: 25-34 minutes - Inpatient Certification Based on my medical assessment, after consideration of the patient's comorbidities, presenting symptoms, or acuity I expect that the services needed warrant INPATIENT care.: Yes I certify that my determination is in accordance with my understanding of Medicare's requirements for reasonable and necessary INPATIENT services [42 CFR 412.3e].: Yes Medical Necessity: Need For IV Fluids, Need for IV Antibiotics - Plan Summary Plan Summary: Continue present management
[2018-01-11] MEDS: METOPROLOL TARTRATE 25 MG TABLET PO SCH (21:11)
[2018-01-11] MEDS: NA PHOS,M-B/NA PHOS,DI-BA (ADULT) 133 ML ENEMA PR SCH (21:12)
[2018-01-12] MEDS: CIPROFLOXACIN 400 MG/D5W RTU 400 MG/200 ML RTUPB IV SCH ×2 (03:28→15:37)
[2018-01-12] MEDS: METRONIDAZOLE 500 MG/NS RTU 100 ML IV SCH ×4 (05:04→23:29)
[2018-01-12] MEDS: NORMAL SALINE 1000 ML 1,000 ML IV PRN (05:07)
[2018-01-12] MEDS: PANTOPRAZOLE SODIUM 40 MG VIAL IV SCH ×2 (09:02→21:49)
[2018-01-12] MEDS: METOPROLOL TARTRATE 25 MG TABLET PO SCH ×2 (09:03→21:50)
[2018-01-12] MEDS: LISINOPRIL 10 MG TABLET PO SCH (09:04)
[2018-01-12] MEDS: BISACODYL 5 MG TABEC PO SCH ×2 (09:06→17:31)
[2018-01-12] MEDS: POLYETHYLENE GLYCOL 3350 POWDER 17 GM/1 PACKET PO SCH (09:06)
--- NOTE | 2018-01-12 18:17 | PDOC PROGRESS REPORT ---
Subjective Progress Note for:: 01/12/18 Subjective:: Patient is doing well she has no specific complaints No abdominal pain no nausea vomiting Reason For Visit: ACUTE COLITIS, ABDOMINAL PAIN Physical Exam Vital Signs: Temp Pulse Resp BP Pulse Ox 98.1 F 69 18 140/46 H 96 01/12/18 15:55 01/12/18 15:55 01/12/18 15:55 01/12/18 15:55 01/12/18 15:55 Intake & Output 01/11/18 01/12/18 01/13/18 00:59 00:59 00:59 Intake Total 100 4025 2362 Output Total 550 975 200 Balance -450 3050 2162 Weight 43 kg 46.5 kg 44.2 kg She is alert and awake Pupils are PERRLA extraocular motor intact Conjunctiva pale Neck supple Heart regular rhythm no murmur no gallop Lungs are clear no rales no rhonchi Abdomen is soft nontender Extremities are intact Neuro nonfocal Results Laboratory Results: 01/11/18 06:28 01/11/18 06:28 Impressions: Head CT 01/10/18 10:49 IMPRESSION: No acute findings. 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 Assessment & Plan - Diagnosis (1) Abdominal pain Qualifiers: Abdominal location: generalized Qualified Code(s): R10.84 - Generalized abdominal pain Is this a current diagnosis for this admission?: Yes (2) Ambulatory dysfunction Is this a current diagnosis for this admission?: Yes (4) Dehydration Is this a current diagnosis for this admission?: Yes (5) UTI (urinary tract infection) Qualifiers: Is this a current diagnosis for this admission?: Yes - Time Time Spent with patient: Continue present management We will DC IV fluids Continue antibiotics IV Patient is tolerating a diet well she did ambulate with physical therapy Patient was sitting in a chair Time Spent with patient: 25-34 minutes
[2018-01-12] MEDS: NA PHOS,M-B/NA PHOS,DI-BA (ADULT) 133 ML ENEMA PR SCH (23:36)
[2018-01-13] MEDS: CIPROFLOXACIN 400 MG/D5W RTU 400 MG/200 ML RTUPB IV SCH (04:35)
[2018-01-13 05:10] LABS: ABSOLUTE EOSINOPHILS # (AUTO) 0.2 10^3/uL (0.0-0.6); ABSOLUTE LYMPHOCYTES (AUTO) 1.4 10^3/uL (0.5-4.7); ABSOLUTE MONOCYTES (AUTO) 1.3 10^3/uL (0.1-1.4); ABSOLUTE NEUT (AUTO) 8.2 10^3/uL (1.7-8.2); BASOPHILS % (AUTO) 0.1 % (0-2); EOSINOPHILS % (AUTO) 1.7 % (0-6); HEMATOCRIT 26.7 % (36.0-47.0); LYMPHOCYTES % (AUTO) 12.2 % (13-45); MEAN CORPUSCULAR HGB CONC 33.5 g/dL (32.0-36.0); MEAN CORPUSCULAR VOLUME 89 fl (80-97); MONOCYTES % (AUTO) 11.6 % (3-13); PLATELET COUNT 284 10^3/uL (150-450); RED BLOOD COUNT 2.99 10^6/uL (3.72-5.28); SEGMENTED NEUTROPHILS % (AUTO) 74.4 % (42-78); TOTAL CELLS COUNTED % (AUTO) 100 %; WHITE BLOOD COUNT 11.1 10^3/uL (4.0-10.5)
[2018-01-13 05:28] LABS: ANION GAP 9 (5-19); BLOOD UREA NITROGEN 16 mg/dL (7-20); CALCIUM 8.3 mg/dL (8.4-10.2); CARBON DIOXIDE 23 mmol/L (22-30); CHLORIDE 109 mmol/L (98-107); GLUCOSE 106 mg/dL (75-110); POTASSIUM 3.8 mmol/L (3.6-5.0); SODIUM 141.4 mmol/L (137-145)
[2018-01-13] MEDS: METRONIDAZOLE 500 MG/NS RTU 100 ML IV SCH ×2 (06:42→11:36)
[2018-01-13] MEDS: POLYETHYLENE GLYCOL 3350 POWDER 17 GM/1 PACKET PO SCH (11:33)
[2018-01-13] MEDS: BISACODYL 5 MG TABEC PO SCH ×2 (11:33→17:49)
[2018-01-13] MEDS: PANTOPRAZOLE SODIUM 40 MG VIAL IV SCH (11:33)
[2018-01-13] MEDS: LISINOPRIL 10 MG TABLET PO SCH (11:34)
[2018-01-13] MEDS: METOPROLOL TARTRATE 25 MG TABLET PO SCH (11:34)
--- NOTE | 2018-01-13 14:33 | PDOC PROGRESS REPORT ---
Subjective Progress Note for:: 01/13/18 Subjective:: Patient is doing a lot better minimal abdominal pain No fever or chills No vomiting No diarrhea White blood count is coming down Reason For Visit: ACUTE COLITIS, ABDOMINAL PAIN Physical Exam Vital Signs: Temp Pulse Resp BP Pulse Ox 99.1 F 73 16 142/49 H 98 01/13/18 12:07 01/13/18 12:07 01/13/18 12:07 01/13/18 12:07 01/13/18 12:07 Intake & Output 01/12/18 01/13/18 01/14/18 00:59 00:59 00:59 Intake Total 4025 5136 600 Output Total 975 500 400 Balance 3050 4636 200 Weight 46.5 kg 44.2 kg 45.4 kg She is alert and awake Pupils are PERRLA extraocular motor intact Conjunctiva pale Neck supple Heart regular rhythm no murmur no gallop Lungs are clear no rales no rhonchi Abdomen is soft nontender Extremities are intact Neuro nonfocal Results Laboratory Results: 01/13/18 04:49 01/13/18 04:49 01/13/18 01/13/18 04:49 04:49 WBC 11.1 H RBC 2.99 L Hgb 9.0 L Hct 26.7 L MCV 89 MCH 30.0 MCHC 33.5 RDW 14.0 Plt Count 284 Seg Neutrophils % 74.4 Lymphocytes % 12.2 L Monocytes % 11.6 Eosinophils % 1.7 Basophils % 0.1 Absolute Neutrophils 8.2 Absolute Lymphocytes 1.4 Absolute Monocytes 1.3 Absolute Eosinophils 0.2 Absolute Basophils 0.0 Sodium 141.4 Potassium 3.8 Chloride 109 H Carbon Dioxide 23 Anion Gap 9 BUN 16 Creatinine 0.92 Est GFR ( Amer) > 60 Est GFR (Non-Af Amer) 58 L Glucose 106 Calcium 8.3 L Impressions: Head CT 01/10/18 10:49 IMPRESSION: No acute findings. 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 Assessment & Plan - Diagnosis (1) Abdominal pain Qualifiers: Abdominal location: generalized Qualified Code(s): R10.84 - Generalized abdominal pain Is this a current diagnosis for this admission?: Yes (2) Ambulatory dysfunction Is this a current diagnosis for this admission?: Yes (4) Dehydration Is this a current diagnosis for this admission?: Yes (5) UTI (urinary tract infection) Qualifiers: Is this a current diagnosis for this admission?: Yes - Time Time Spent with patient: Patient is improved Likely recovering from enterocolitis improved on antibiotics We will continue Cipro and Flagyl p.o. Patient should be out of bed; DC Hansen catheter Consider discharge in a.m. Patient is a candidate for home health and home PT Time Spent with patient: 25-34 minutes - Inpatient Certification Based on my medical assessment, after consideration of the patient's comorbidities, presenting symptoms, or acuity I expect that the services needed warrant INPATIENT care.: Yes I certify that my determination is in accordance with my understanding of Medicare's requirements for reasonable and necessary INPATIENT services [42 CFR 412.3e].: Yes Medical Necessity: Risk of Complication if Not Cared For in Hospital
[2018-01-13] MEDS: OXYBUTYNIN CHLORIDE 5 MG TABLET PO SCH (17:49)
[2018-01-13] MEDS ORDERED: CIPROFLOXACIN HCL 500 MG TABLET PO SCH (20:00)
[2018-01-13] MEDS: CIPROFLOXACIN HCL 500 MG TABLET PO SCH (21:40)
[2018-01-13] MEDS: METRONIDAZOLE 500 MG TABLET PO SCH (21:40)
[2018-01-13] MEDS: FAMOTIDINE 20 MG TABLET PO SCH (21:40)
[2018-01-13] MEDS: NA PHOS,M-B/NA PHOS,DI-BA (ADULT) 133 ML ENEMA PR SCH (21:41)
[2018-01-13] MEDS ORDERED: METOPROLOL TARTRATE 25 MG TABLET PO SCH (22:00)
[2018-01-14] MEDS ORDERED: METOPROLOL TARTRATE 25 MG TABLET PO ONE (00:15)
[2018-01-14] MEDS: METRONIDAZOLE 500 MG TABLET PO SCH ×2 (06:53→14:23)
[2018-01-14] MEDS ORDERED: FLUOXETINE HCL 20 MG CAPSULE PO SCH (08:00)
[2018-01-14] MEDS: POLYETHYLENE GLYCOL 3350 POWDER 17 GM/1 PACKET PO SCH (09:29)
[2018-01-14] MEDS: OXYBUTYNIN CHLORIDE 5 MG TABLET PO SCH (09:30)
[2018-01-14] MEDS: BISACODYL 5 MG TABEC PO SCH (09:30)
[2018-01-14] MEDS: FAMOTIDINE 20 MG TABLET PO SCH (09:32)
[2018-01-14] MEDS: LISINOPRIL 10 MG TABLET PO SCH (09:33)
[2018-01-14] MEDS: CIPROFLOXACIN HCL 500 MG TABLET PO SCH (09:33)
[2018-01-14] MEDS ORDERED: LISINOPRIL 10 MG TABLET PO SCH (10:00)
[2018-01-14] MEDS ORDERED: (PENDING PHARMACY ID) (Pravastatin Sodium [Pravachol] 40 MG) PO SCH (10:00)
[2018-01-14] MEDS ORDERED: METOPROLOL TARTRATE 25 MG TABLET PO SCH (10:00)
[2018-01-14] MEDS ORDERED: ATORVASTATIN CALCIUM 10 MG TABLET PO SCH (10:00)
--- NOTE | 2018-01-14 11:51 | PDOC DISCHARGE SUMMARY ---
General - Admit/Disc Date/PCP Admission Date/Primary Care Provider: 01/10/18 14:36 ALIYAH WHITEHEAD MD Discharge Date: 01/14/18 - Discharge Diagnosis (1) Abdominal pain Is this a current diagnosis for this admission?: Yes (2) Ambulatory dysfunction Is this a current diagnosis for this admission?: Yes (4) Dehydration Is this a current diagnosis for this admission?: Yes (5) UTI (urinary tract infection) Is this a current diagnosis for this admission?: Yes - Additional Information Resuscitation Status: Full Code Prescriptions: Ciprofloxacin HCl [Cipro 500 mg Tablet] 500 mg PO Q12 #10 tablet Lactobacillus Acidophilus [Acidophilus Lactobacilli] 1 each PO BID #30 capsule Lisinopril 20 mg PO DAILY 30 Days #30 tablet Metoprolol Tartrate [Lopressor 25 mg Tablet] 25 mg PO Q12 30 Days #60 tablet Metronidazole [Flagyl 500 mg Tablet] 500 mg PO Q8 #15 tablet Home Medications: Fluoxetine HCl [Prozac] 40 mg PO QAM 01/11/18 Oxybutynin Chloride [Ditropan 5 mg Tablet] 5 mg PO BID 01/11/18 Pravastatin Sodium [Pravachol] 40 mg PO DAILY 01/11/18 Ciprofloxacin HCl [Cipro 500 mg Tablet] 500 mg PO Q12 #10 tablet 01/14/18 Lactobacillus Acidophilus [Acidophilus Lactobacilli] 1 each PO BID #30 capsule 01/14/18 Lisinopril 20 mg PO DAILY 30 Days #30 tablet 01/14/18 Metoprolol Tartrate [Lopressor 25 mg Tablet] 25 mg PO Q12 30 Days #60 tablet Metronidazole [Flagyl 500 mg Tablet] 500 mg PO Q8 #15 tablet 01/14/18 History of Present Illness Patient complains of: ABDOMINAL PAIN. ALTERED MENTATION History of Present Illness: MADAI HONG is a 87 year old female With a known past history of CHF ; usually cared for at home by her daughter She was brought to the ED with a history of anorexia ;abdominal pain extreme weakness with inability to stand and ambulate for the past 4 days. Patient has been bedbound, somewhat lethargic. She was evaluated yesterday in the ED and diagnosed of acute colitis and UTI She was discharged home on Cipro and Flagyl. Somehow her condition worsened and she was brought back for reevaluation and admission Upon evaluation in the ED she was found somewhat dehydrated; examination of the abdomen revealed a diffusely tender abdomen With mild guarding and mild rebound in all quadrants Review of the CT showed pancolitis, cystitis and suspicion of an enterocutaneous fistula. Patient was admitted to [facility] with telemetry; IV Cipro and Flagyl were initiated ; IV fluids; she was kept n.p.o. And surgical consult with Dr. Vogt was requested. Noted that patient wishes to be full code Hospital Course Hospital Course: Patient is an 87-year-old female who usually resides at home where she is cared for by her daughter Patient presented with abdominal pain and altered mentation She underwent CT abdomen and pelvis on 01/09/2018 showing acute colitis of the descending and sigmoid colon and acute cystitis Patient at that time was discharged from the ED with p.o. antibiotics Condition worsened and she was admitted as an inpatient for IV antibiotics Patient was treated with Cipro Flagyl IV She also was given IV fluids The Hansen catheter was inserted Condition improved dramatically Mentation improved; she could not tolerate a diet And leukocytosis improved as well All cultures were negative Stools was negative for C. difficile toxin 01/09/18 01/10/18 01/10/18 05:57 10:30 23:05 WBC 16.7 H 16.0 H Hgb Hct Plt Count C. difficile Tox (PCR) NEGATIVE 01/11/18 01/13/18 06:28 04:49 WBC 15.7 H 11.1 H Hgb 9.0 L Hct 26.7 L Plt Count 284 C. difficile Tox (PCR) 01/10/18 17:30 Blood Culture - Preliminary Blood NO GROWTH AFTER 72 HOURS 01/10/18 16:46 Blood Culture - Preliminary Blood NO GROWTH AFTER 72 HOURS 01/09/18 06:39 - Final Stool - Stool Stool Culture - Final NO SALMONELLA, SHIGELLA, CAMPYLOBACTER, OR E.COLI 0157 RECOVERED. NEGATIVE FOR SHIGA TOXINS 1&2. 01/09/18 06:14 Blood Culture - Final Blood NO GROWTH IN 5 DAYS Patient was discharged on Cipro and Flagyl p.o. Patient had PT evaluation; she was found a candidate for home health and home PT Patient will be followed by primary care physician after discharge Physical Exam Vital Signs: Temp Pulse Resp BP Pulse Ox 97.6 F 56 L 15 164/58 H 99 01/14/18 07:22 01/14/18 07:22 01/14/18 07:22 01/14/18 07:22 01/14/18 07:22 Intake & Output 01/13/18 01/14/18 01/15/18 00:59 00:59 00:59 Intake Total 5136 818 100 Output Total 500 900 200 Balance 4636 -82 -100 Weight 44.2 kg 45.4 kg 42.3 kg She is alert and awake Pupils are PERRLA extraocular motor intact Conjunctiva pale Neck supple Heart regular rhythm no murmur no gallop Lungs are clear no rales no rhonchi Abdomen is soft nontender Extremities are intact Neuro nonfocal Results Laboratory Results: 01/13/18 04:49 01/13/18 04:49 Impressions: Head CT 01/10/18 10:49 IMPRESSION: No acute findings. 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 Qualifiers - * PATEINT BEING DISCHARGED WITH ANY OF THE FOLLOWING DIAGNOSIS?: No
[2018-01-14 16:07] VITALS: BP 151/50
== END 2018-01-14 16:34 | disposition home health service (06) | DRG 392 ==
LOC: ER 10:13 → EH 14:36 → 3W 17:59
PROVIDERS: ADMIT Internal Medicine; ATTEND Internal Medicine
DX: K52.9 Noninfective gastroenteritis and colitis, unspecified (principal); N30.00 Acute cystitis without hematuria; E86.0 Dehydration; K59.00 Constipation, unspecified; I11.0 Hypertensive heart disease with heart failure; I50.9 Heart failure, unspecified; Z79.82 Long term (current) use of aspirin; Z79.899 Other long term (current) drug therapy; E11.9 Type 2 diabetes mellitus without complications; F32.9 Major depressive disorder, single episode, unspecified; Z74.01 Bed confinement status
CPT/HCPCS: 36415; 51701; 70450; 71045; 74177; 80048; 80053; 81001; 83690; 84439; 84443; 85025; 85027; 87040; 87045; 87205; 87493; 93005; 93010; 96360; 96374; 99285; G8978-GP; G8979-GP; J0744; J2405; J3490; J7030; J7040; S0164

== ENCOUNTER 2018-02-16 23:59 | Emergency (ER) | payer MEDICARE, OTHER ==
--- NOTE | 2018-02-17 00:25 | ER Document Report ---
ED General - General Chief Complaint: Urinary Problem Stated Complaint: BLOOD IN URINE Time Seen by Provider: 02/17/18 00:17 TRAVEL OUTSIDE OF THE [place] IN LAST 30 DAYS: No - HPI Notes: 88-year-old female brought by EMS from a long term complaining of blood in her urine and lower back tenderness. Gradual onset over the last day or 2. No fever. Nonradiating. Crampy and sharp. No other modifying factors, no other associated symptoms, no other provocative or palliative factors. No fever, no vomiting. - Related Data Allergies/Adverse Reactions: No Known Allergies Allergy (Verified 09/07/17 14:16) Past Medical History - Social History Smoking Status: Unknown if Ever Smoked Cigarette use (# per day): No Drug Abuse: None Family History: Reviewed & Not Pertinent - Past Medical History Cardiac Medical History: Reports: Hx Congestive Heart Failure, Hx Hypertension Renal/ Medical History: Denies: Hx Peritoneal Dialysis Psychiatric Medical History: Reports: Hx Depression Review of Systems - Review of Systems Notes: Review of systems as in the history of present illness, otherwise negative. Physical Exam - Vital signs Vitals: Temp Pulse Resp BP Pulse Ox 99.3 F 80 16 145/63 H 99 02/16/18 23:59 02/16/18 23:59 02/16/18 23:59 02/16/18 23:59 02/16/18 23:59 - Notes Notes: General: Well developed . HEENT: Normocephalic, atraumatic. Pupils equal round reactive to light. No JVD. Chest: No trauma. Respiratory: Good air exchange, normal excursion. Cardiac: Regular rhythm. No murmurs or gallops. Abdomen: Soft, benign. Nondistended. Minimal suprapubic tenderness. No distention. Back: No asymmetry or gross abnormality. Motor: Grossly normal power and tone. Neurologic: Alert, nonfocal. Cranial nerves II-12 are intact. Sensation intact. Vascular: Well perfused. Normal peripheral pulses. Skin: No petechiae or purpura. Course - Re-evaluation Re-evalutation: 02/17/18 00:24 Pleasant elderly female who presents with the after mentioned symptoms, relatively benign abdominal examination. Consider cystitis, less likely pyelonephritis. Out of obstruction, AAA, perforation or acute abdominal emergency. Plan to proceed with basic labs, urinalysis, reassess. 02/17/18 02:20 Labs reviewed, grossly unremarkable with the exception of hematuria and chronic anemia.. There is no convincing evidence of infection. Patient is watched with serial abdominal examinations, has a benign abdomen. I believe she can proceed with outpatient workup for hematuria, clearly malignancy would need to be ruled out. No indication for emergent imaging at this time. Of note, she has normal platelets, she is not anticoagulated. She has chronic anemia. 02/17/18 02:22 - Vital Signs Vital signs: Temp Pulse Resp BP Pulse Ox 99.3 F 89 18 131/65 H 97 02/16/18 23:59 02/17/18 02:08 02/17/18 02:08 02/17/18 02:08 02/17/18 02:08 - Laboratory Result Diagrams: 02/17/18 00:45 02/17/18 00:45 Laboratory results interpreted by me: 02/17/18 02/17/18 02/17/18 00:45 00:45 01:52 WBC 13.1 H RBC 3.19 L Hgb 9.4 L Hct 28.8 L RDW 14.4 H Plt Count 492 H Absolute Neutrophils 9.6 H Potassium 5.2 H BUN 38 H Est GFR ( Amer) 50 L Est GFR (Non-Af Amer) 41 L Glucose 118 H Urine Protein >=500 H Urine Blood LARGE H Urine Ascorbic Acid 20 H Discharge - Discharge Clinical Impression: Hematuria Qualifiers: Hematuria type: gross Qualified Code(s): R31.0 - Gross hematuria Condition: Good Disposition: HOME, SELF-CARE Instructions: Hematuria ([facility]) Referrals: ALIYAH MACKAY MD [Primary Care Provider] - 02/18/18
[2018-02-17 01:00] LABS: ABSOLUTE BASOPHILS # (AUTO) 0.1 10^3/uL (0.0-0.2); ABSOLUTE EOSINOPHILS # (AUTO) 0.1 10^3/uL (0.0-0.6); ABSOLUTE LYMPHOCYTES (AUTO) 1.8 10^3/uL (0.5-4.7); ABSOLUTE MONOCYTES (AUTO) 1.4 10^3/uL (0.1-1.4); ABSOLUTE NEUT (AUTO) 9.6 10^3/uL (1.7-8.2); BASOPHILS % (AUTO) 0.6 % (0-2); EOSINOPHILS % (AUTO) 1.1 % (0-6); HEMATOCRIT 28.8 % (36.0-47.0); HEMOGLOBIN 9.4 g/dL (12.0-15.5); LYMPHOCYTES % (AUTO) 13.7 % (13-45); MEAN CORPUSCULAR HEMOGLOBIN 29.5 pg (27.0-33.4); MEAN CORPUSCULAR HGB CONC 32.7 g/dL (32.0-36.0); MEAN CORPUSCULAR VOLUME 90 fl (80-97); MONOCYTES % (AUTO) 10.9 % (3-13); PLATELET COUNT 492 10^3/uL (150-450); RED BLOOD COUNT 3.19 10^6/uL (3.72-5.28); RED CELL DISTRIBUTION WIDTH 14.4 % (11.5-14.0); SEGMENTED NEUTROPHILS % (AUTO) 73.7 % (42-78); TOTAL CELLS COUNTED % (AUTO) 100 %; WHITE BLOOD COUNT 13.1 10^3/uL (4.0-10.5)
[2018-02-17 01:08] LABS: ANION GAP 12 (5-19); BLOOD UREA NITROGEN 38 mg/dL (7-20); CALCIUM 9.3 mg/dL (8.4-10.2); CARBON DIOXIDE 30 mmol/L (22-30); CHLORIDE 101 mmol/L (98-107); GLUCOSE 118 mg/dL (75-110); POTASSIUM 5.2 mmol/L (3.6-5.0); SODIUM 143.1 mmol/L (137-145)
[2018-02-17 02:12] LABS: APPEARANCE,URINE CLOUDY; BILIRUBIN,URINE NEGATIVE (NEGATIVE); COLOR,URINE RED; GLUCOSE, URINE NEGATIVE (NEGATIVE); KETONES,URINE NEGATIVE (NEGATIVE); LEUKOCYTE ESTERASE,URINE NEGATIVE (NEGATIVE); NITRITE,URINE NEGATIVE (NEGATIVE); PROTEIN,URINE >=500 mg/dL (NEGATIVE); URINE SPECIFIC GRAVITY 1.013; UROBILINOGEN,URINE NEGATIVE mg/dL (<2.0)
[2018-02-17 04:31] VITALS: BP 143/72
== END 2018-02-17 05:02 | disposition home or self-care (01) ==
LOC: ER 23:59
DX: R31.0 Gross hematuria (principal); M54.5 Low back pain; I10 Essential (primary) hypertension
CPT/HCPCS: 36415; 51701; 80048; 81001; 85025; 99284